=== PATIENT | male | born 2000 | race Caucasian/White ===

== ENCOUNTER 2021-08-27 15:44 | Emergency (ER) | payer SELFPAY ==
[2021-08-27 16:02] VITALS: BP 144/82
[2021-08-27 16:15] VITALS: BP 133/81
[2021-08-27 16:30] VITALS: BP 135/87
[2021-08-27 16:45] VITALS: BP 123/75
[2021-08-27 17:00] VITALS: BP 114/72
[2021-08-27] MEDS ORDERED: ZPAK PO (18:05)
[2021-08-27] MEDS ORDERED: PROAIR HFA108 MCG/AC PO (18:05)
[2021-08-27 18:20] VITALS: BP 114/72
== END 2021-08-27 18:20 | disposition home or self-care (01) | DRG 153 ==
LOC: ED 15:44
DX: J06.9 Acute upper respiratory infection, unspecified (principal); J45.909 Unspecified asthma, uncomplicated; Z20.822 Contact with and (suspected) exposure to COVID-19